=== PATIENT | female | born 1970 | race Caucasian/White ===

== ENCOUNTER → 2019-05-05 | Outpatient (CLI) | payer BC ==
[~2019-05-05] MED LIST: ADVIL; ALLERGY MEDICATION; FISHOIL PO; FLEXERIL PO; VITAMIN B-12100 MC1 PO; VITAMIN D1000 UNI1 PO; WELLBUTRIN PO; ZANAFLEX4 M1 PO; ZOCOR 20 MG TAB20 M1 PO
== END ==
LOC: M.RAD 09:03
DX: Z12.31 Encounter for screening mammogram for malignant neoplasm of breast (principal)

== ENCOUNTER → 2020-07-26 | Outpatient (CLI) | payer OTHER ==
[~2020-07-26] MED LIST changes: +MAXZIDE-25 MG1 EACH PO; +PROGESTERONE100 MG PO; +ZOLOFT 50 MG TA50 M1 PO
== END ==
LOC: M.RAD 11:22
PROVIDERS: ATTEND Nurse Practitioner Family
DX: Z12.31 Encounter for screening mammogram for malignant neoplasm of breast (principal)

== ENCOUNTER → 2022-01-13 | Outpatient (CLI) | payer OTHER | LOC: M.RAD 11:46 | PROVIDERS: ATTEND Nurse Practitioner Family | DX: Z12.31 Encounter for screening mammogram for malignant neoplasm of breast (principal) ==